=== PATIENT | male | born 1945 | race Caucasian/White ===

== ENCOUNTER → 2016-11-18 | Outpatient (CLI) | payer OTHER ==
[~2016-11-18] MED LIST: HYZUNK
[2016-11-18 13:36] LABS: ALT/SGPT 23 U/L (12-78); BLOOD UREA NITROGEN 17 mg/dl (7-18); CALCIUM 9.4 mg/dl (8.5-10.1); CARBON DIOXIDE 31 mmol/L (21-32); CHLORIDE 103 mmol/L (98-107); CHOLESTEROL 155 mg/dl (0-200); GLUCOSE 96 mg/dl (70-99); POTASSIUM 4.1 mmol/L (3.5-5.1); SODIUM 140 mmol/L (136-145); TRIGLYCERIDES 196 mg/dl (0-150); VERY LOW DENSITY LIPOPROT CALC 39 mg/dl
[2016-11-18 13:40] LABS: ALB/GLOB RATIO 1.1 (0.9-2); ALKALINE PHOSPHATASE 91 U/L (45-117); AST/SGOT 12 U/L (15-37); CHOLESTEROL/HDL RATIO 4.8; HDL CHOLESTEROL 32 mg/dl; LDL CHOLESTEROL CALCULATED 84 mg/dl
== END | disposition home or self-care (01) ==
LOC: C.LABPVFM 07:38
PROVIDERS: ATTEND Family Medicine
DX: I10 Essential (primary) hypertension (principal); E78.5 Hyperlipidemia, unspecified; E55.9 Vitamin D deficiency, unspecified

== ENCOUNTER → 2016-12-31 | Outpatient (CLI) | payer OTHER ==
[~2016-12-31] MED LIST changes: +FOLI1TAB7 PO; +HYZ/50125 PO; +METH2.5T PO; +PLQ200 PO; +PRD/25 PO
[2016-12-31 12:47] LABS: ALT/SGPT 28 U/L (12-78)
[2016-12-31 12:50] LABS: ALKALINE PHOSPHATASE 97 U/L (45-117); AST/SGOT 13 U/L (15-37)
== END | disposition home or self-care (01) ==
LOC: C.LAB1850 10:45
PROVIDERS: ATTEND Internal Medicine Rheumatology
DX: M06.041 Rheumatoid arthritis without rheumatoid factor, right hand (principal); M06.042 Rheumatoid arthritis without rheumatoid factor, left hand; Z79.899 Other long term (current) drug therapy

== ENCOUNTER → 2017-04-03 | Outpatient (CLI) | payer OTHER ==
[~2017-04-03] MED LIST changes: -FOLI1TAB7 PO; -HYZ/50125 PO; -METH2.5T PO; -PLQ200 PO; -PRD/25 PO
[2017-04-03 10:06] LABS: BASO % 0.4 %; BASO ABS # 0.02 K/uL (0-0.2); COMPLETE YES; EOS % 3.6 %; HEMATOCRIT 43.7 % (42-52); LYMPH % 23.9 %; LYMPH ABS # 1.12 K/uL (1.2-3.4); MEAN CELL VOLUME 93.4 fL (80-100); MEAN CORPUSCULAR HEMOGLOBIN 32.3 pg (25-34); MEAN CORPUSCULAR HGB CONC 34.6 g/dl (32-36); MEAN PLATELET VOLUME 10.8 fL (7.4-10.4); MONO % 8.5 %; NEUT % 63.6 %; PLATELET COUNT 139 K/uL (130-400); RED BLOOD COUNT 4.68 M/uL (4.7-6.1); WHITE BLOOD COUNT 4.69 K/uL (4.8-10.8)
[2017-04-03 10:27] LABS: ALT/SGPT 28 U/L (12-78); AST/SGOT 13 U/L (15-37); BLOOD UREA NITROGEN 16 mg/dl (7-18); BUN/CREATININE RATIO 12.7 (10-20); CARBON DIOXIDE 29 mmol/L (21-32); CHLORIDE 103 mmol/L (98-107); GLUCOSE 83 mg/dl (70-99); POTASSIUM 4.2 mmol/L (3.5-5.1); SODIUM 138 mmol/L (136-145)
[2017-04-03 10:32] LABS: ALB/GLOB RATIO 1.2 (0.9-2); ALKALINE PHOSPHATASE 96 U/L (45-117)
== END | disposition home or self-care (01) ==
LOC: C.LAB1850 09:21
PROVIDERS: ATTEND Internal Medicine Rheumatology
DX: Z12.5 Encounter for screening for malignant neoplasm of prostate (principal); M06.041 Rheumatoid arthritis without rheumatoid factor, right hand; M06.042 Rheumatoid arthritis without rheumatoid factor, left hand; Z79.899 Other long term (current) drug therapy

== ENCOUNTER → 2017-07-22 | Outpatient (CLI) | payer OTHER ==
[2017-07-22 10:04] LABS: BASO % 0.5 %; BASO ABS # 0.03 K/uL (0-0.2); COMPLETE YES; EOS % 3.5 %; HEMATOCRIT 43.2 % (42-52); IG% 0.2 %; LYMPH % 18.5 %; MEAN CELL VOLUME 92.1 fL (80-100); MEAN CORPUSCULAR HEMOGLOBIN 31.6 pg (25-34); MEAN CORPUSCULAR HGB CONC 34.3 g/dl (32-36); MONO % 8.9 %; NEUT % 68.4 %; PLATELET COUNT 164 K/uL (130-400); RED BLOOD COUNT 4.69 M/uL (4.7-6.1); WHITE BLOOD COUNT 5.96 K/uL (4.8-10.8)
[2017-07-22 10:29] LABS: ALT/SGPT 27 U/L (12-78); AST/SGOT 9 U/L (15-37); CREATININE 1.25 mg/dl (0.60-1.40)
== END | disposition home or self-care (01) ==
LOC: C.LAB1850 09:19
PROVIDERS: ATTEND Internal Medicine Rheumatology
DX: M06.041 Rheumatoid arthritis without rheumatoid factor, right hand (principal); M06.042 Rheumatoid arthritis without rheumatoid factor, left hand; Z51.81 Encounter for therapeutic drug level monitoring; Z79.899 Other long term (current) drug therapy

== ENCOUNTER → 2017-09-01 | Day surgery (SDC) | payer OTHER ==
[2017-08-17 07:48] VITALS: Ht 180.3 cm; Wt 90.0 kg
[~2017-09-01] VITALS: Ht 180.3 cm; Wt 90.0 kg
[~2017-09-01] MED LIST changes: +FOLI1TAB7 PO; +HYZ/50125 PO; -HYZUNK; +METH2.5T PO; +PLQ200 PO; +PRD/25 PO; +SODIUM CHLORIDE 0.9% 500ML 500 ML IV ONE
--- NOTE | 2017-09-01 09:45 | Endo History and Physical ---
History & Physical Date of Service: Sep 01, 2017. Chief Complaint: screening Referring Physician: Dr. Judge History of Present Illness 72 yo CM who presents for screening colonoscopy. Past Surgical History Hx Cardiac Surgery: No Hx Internal Defibrillator: No Hx Pacemaker: No Hx Abdominal Surgery: Yes (INGUINAL HERNIA) Hx of Implantable Prosthesis: No Hx Post-Op Nausea and Vomiting: No Hx Cancer Surgery: No Hx Thoracic Surgery: No Hx Orthopedic: No Hx Urinary Tract Surgery: No Family History None Social History Hx Substance Use: No Hx Alcohol Use: No Allergies Coded Allergies: No Known Allergies (Verified , 09/01/17) Current Medications Reported Home Medications Medications Dose Route/Sig Max Daily Dose Days Date Category Folvite (Folic Acid) 1 Mg Tab 1 Mg PO QAM 08/17/17 Reported Prednisone 2.5 Mg Tab 2.5 Mg PO 2XWK 08/17/17 Reported Methotrexate (Methotrexate Sodium) 2.5 Mg Tab 4 Tab PO WK 08/17/17 Reported Hydroxychloroquine Sulfat (Hydroxychloroquine Sulfate) 200 Mg Tab 1 Tab PO QAM 08/17/17 Reported Hyzaar 12.5MG/50MG (HCTZ/Losartan Potassium) Tab 1 Tab PO QAM 08/17/17 Reported Vital Signs Weight (Kilograms): 90 Height (Feet): 5 Height (Inches): 11 Date Time Temp Pulse Resp B/P (MAP) Pulse Ox O2 Delivery O2 Flow Rate FiO2 09/01/17 09:26 36.6 82 18 145/65 (91) 97 Room Air Physical Exam General Appearance: WD/WN, no apparent distress Respiratory/Chest: Auscultation: breath sounds normal Cardiovascular: Heart Auscultation: RRR Abdomen: Bowel Sounds: normal Inspection & Palpation: soft, non-distended, no tenderness, guarding & rebound Assessment and Plan Assessment: 72 yo CM who presents for screening colonoscopy. Plan: Proceed with colonoscopy.
--- NOTE | 2017-09-01 11:01 | Discharge Instructions ---
Endoscopy Patient Instructions Date / Procedure(s) Performed Sep 01, 2017. Colonoscopy Allergy Information Coded Allergies: No Known Allergies (Verified , 09/01/17) Discharge Date / Findings Sep 01, 2017. Diverticulosis Internal hemorrhoids Medication Instructions Stopped Medication(s): All meds stopped 08-31-17. OK to resume all medications today as prescribed Reported Home Medications Medications Dose Route/Sig Max Daily Dose Days Date Category Folvite (Folic Acid) 1 Mg Tab 1 Mg PO QAM 08/17/17 Reported Prednisone 2.5 Mg Tab 2.5 Mg PO 2XWK 08/17/17 Reported Methotrexate (Methotrexate Sodium) 2.5 Mg Tab 4 Tab PO WK 08/17/17 Reported Hydroxychloroquine Sulfat (Hydroxychloroquine Sulfate) 200 Mg Tab 1 Tab PO QAM 08/17/17 Reported Hyzaar 12.5MG/50MG (HCTZ/Losartan Potassium) Tab 1 Tab PO QAM 08/17/17 Reported Provider Instructions Activity Restrictions - No exercising or heavy lifting for 24 hours. - Do not drink alcohol the day of the procedure. - Do not drive a car or operate machinery until the day after the procedure. - Do not make any important decisions or sign important papers in 24 hours after the procedure. Following Day: - Return to full activity which may include returning to work/school. Diet Start your diet with liquids and light foods (jello, soup, juice, toast). Then eat your usual diet if not nauseated. Treatment For Common After Affects For mild abdominal pain, bloating, or excessive gas: - Rest - Eat lightly - Lie on right side Follow-Up Information Follow-up with Dr. Judge as scheduled Anesthesia Information What You Should Know You have had a procedure that required some medicine to reduce anxiety and discomfort. This treatment is called moderate sedation. After receiving the treatment, you may be sleepy, but you will be able to breathe on your own. The effects of the treatment may last for several hours. Follow these instructions along with Activity/Diet recommendations noted above: * Do NOT do anything where dizziness or clumsiness would be dangerous. * Rest quietly at home today, then you can be up and about tomorrow. * Have a responsible person stay with you the rest of today. * You may have had an I.V. today. If so, you may take the dressing off later today. Recommendations Call your doctor if: * Trouble breathing * Continuous vomiting for more than 24 hours * Temperature above 101 degrees * Severe abdominal pain or bloating * Pain not relieved by pain medicine ordered * There is increased drainage or redness from any incision * A large amount of rectal bleeding greater than 2-3 tablespoons. (If you had a polyp/s removed or have hemorrhoids, a small amount of blood - from the rectum is to be expected.) * You have any unanswered questions or concerns. IN THE EVENT OF A SERIOUS EMERGENCY, GO TO THE NEAREST EMERGENCY ROOM Your discharge instructions were prepared by provider Mau Alvarez. Patient Instructions Signature Page Leif Bryant Patient (or Guardian) Signature/Date: I have read and understand the instructions given to me by my caregivers. Caregiver/RN/Doctor Signature/Date: The above-named patient and/or guardian has received patient instructions on this date. + Original Patient Signature Page (only) stays with chart. Please make copy for patient.
--- NOTE | 2017-09-01 11:04 | GI REPORT ---
Procedure Date: 09/01/2017 10:09 AM Procedure: Colonoscopy Indications: Screening for colorectal malignant neoplasm Medicines: Monitored Anesthesia Care Complications: No immediate complications. Estimated Blood Loss: Estimated blood loss: none. Procedure: Pre-Anesthesia Assessment: - Prior to the procedure, a History and Physical was performed, and patient medications and allergies were reviewed. The patient's tolerance of previous anesthesia was also reviewed. The risks and benefits of the procedure and the sedation options and risks were discussed with the patient. All questions were answered, and informed consent was obtained. Prior Anticoagulants: The patient has taken no previous anticoagulant or antiplatelet agents. ASA Grade Assessment: II - A patient with mild systemic disease. After reviewing the risks and benefits, the patient was deemed in satisfactory condition to undergo the procedure. After I obtained informed consent, the scope was passed under direct vision. Throughout the procedure, the patient's blood pressure, pulse, and oxygen saturations were monitored continuously. The scope was introduced through the anus and advanced to the terminal ileum. The colonoscopy was performed without difficulty. The patient tolerated the procedure well. The quality of the bowel preparation was good. The terminal ileum, ileocecal valve, appendiceal orifice, and rectum were photographed. Findings: The perianal and digital rectal examinations were normal. Multiple small-mouthed diverticula were found in the sigmoid colon. Non-bleeding internal hemorrhoids were found during retroflexion. The hemorrhoids were small. Impression: - Diverticulosis in the sigmoid colon. - Non-bleeding internal hemorrhoids. - No specimens collected. Recommendation: - Resume previous diet. - Continue present medications. - No repeat colonoscopy due to age and the absence of advanced adenomas. - Return to primary care physician as previously scheduled. Mau Alvarez, 09/01/2017 11:03:23 AM This report has been signed electronically. Note Initiated On: 09/01/2017 10:09 AM I attest to the content of the Intraoperative Record and orders documented therein, exceptions below
[2017-09-01 11:42] VITALS: BP 129/82; PULSE 78; O2SAT 98
--- NOTE | 2017-09-01 12:38 | Anesthesiology Progress Note ---
Anesthesia Post Op Note Date & Time Sep 01, 2017 at 12:38 Vital Signs Pain Intensity: 0 Vital Signs Past 12 Hours Date Time Temp Pulse Resp B/P (MAP) Pulse Ox O2 Delivery O2 Flow Rate FiO2 09/01/17 11:42 78 18 129/82 (98) 98 Room Air 09/01/17 11:30 73 18 128/82 (97) 98 Room Air 09/01/17 11:15 73 14 129/70 (89) 96 Room Air 09/01/17 10:59 77 14 102/66 (78) 97 Room Air 09/01/17 09:26 36.6 82 18 145/65 (91) 97 Room Air Notes Mental Status: alert / awake / arousable, participated in evaluation Pt Amnestic to Procedure: Yes Nausea / Vomiting: adequately controlled Pain: adequately controlled Airway Patency, RR, SpO2: stable & adequate BP & HR: stable & adequate Hydration State: stable & adequate Anesthetic Complications: no major complications apparent
== END | disposition home or self-care (01) ==
LOC: C.GI 08:45
PROVIDERS: ATTEND Internal Medicine
DX: Z12.11 Encounter for screening for malignant neoplasm of colon (principal); K57.30 Diverticulosis of large intestine without perforation or abscess without bleeding; K64.8 Other hemorrhoids

== ENCOUNTER → 2017-10-27 | Outpatient (CLI) | payer OTHER ==
[~2017-10-27] MED LIST changes: -FOLI1TAB7 PO; +FOLI1TAB8 PO; -SODIUM CHLORIDE 0.9% 500ML 500 ML IV ONE
[2017-10-27 12:03] LABS: BASO % 0.4 %; BASO ABS # 0.03 K/uL (0-0.2); EOS % 3.6 %; EOS ABS # 0.24 K/uL (0-0.5); HEMATOCRIT 42.2 % (42-52); HEMOGLOBIN 13.8 g/dL (14.0-18.0); IG# 0.01 K/uL (0.00-0.02); LYMPH % 13.8 %; LYMPH ABS # 0.93 K/uL (1.2-3.4); MEAN CELL VOLUME 94.8 fL (80-100); MEAN CORPUSCULAR HGB CONC 32.7 g/dl (32-36); MEAN PLATELET VOLUME 10.6 fL (7.4-10.4); MONO % 8.3 %; MONO ABS # 0.56 K/uL (0.11-0.59); NEUT % 73.8 %; NEUT ABS # 4.98 K/uL (1.4-6.5); PLATELET COUNT 158 K/uL (130-400); RED CELL DISTRIBUTION WIDTH CV 13.6 % (11.5-14.5); RED CELL DISTRIBUTION WIDTH SD 47.2 fL (36.4-46.3); WHITE BLOOD COUNT 6.75 K/uL (4.8-10.8)
[2017-10-27 12:30] LABS: ALBUMIN 3.7 gm/dl (3.4-5.0); ALT/SGPT 24 U/L (12-78); AST/SGOT 13 U/L (15-37); CREATININE 1.21 mg/dl (0.60-1.40)
[2017-10-27 12:31] LABS: ALKALINE PHOSPHATASE 93 U/L (45-117); TOTAL PROTEIN 7.4 gm/dl (6.4-8.2)
== END | disposition home or self-care (01) ==
LOC: C.LAB1850 09:50
PROVIDERS: ATTEND Internal Medicine Rheumatology
DX: E55.9 Vitamin D deficiency, unspecified (principal); M06.041 Rheumatoid arthritis without rheumatoid factor, right hand; M06.042 Rheumatoid arthritis without rheumatoid factor, left hand; Z79.899 Other long term (current) drug therapy

== ENCOUNTER → 2017-12-24 | Outpatient (CLI) | payer OTHER | END | disposition home or self-care (01) | LOC: C.LABPVFM 08:32 | PROVIDERS: ATTEND Family Medicine | DX: R22.1 Localized swelling, mass and lump, neck (principal) ==

== ENCOUNTER → 2017-12-29 | Outpatient (CLI) | payer OTHER ==
--- NOTE | 2017-12-29 12:32 | DIAGNOSTIC IMAGING REPORT ---
SOFT TISS HEAD/NECK-THYROID CLINICAL HISTORY: 72 years-old Male presenting with R22.1 Neck [id number]. TECHNIQUE: Real-time grayscale and color Doppler ultrasound imaging of the thyroid and base of the neck was performed. COMPARISON: None. FINDINGS: Right lobe: Heterogeneous echotexture and enlarged. The right lobe of the thyroid measures 3.4 x 9.1 x 4.4 cm. No parenchymal hyperemia. Nodules enumerated below: 1. Isoechoic well-defined dominant lower pole nodule measuring 4.6 x 3.0 x 5.1 cm (low suspicion pattern). Left lobe: Heterogeneous echotexture and enlarged. The left lobe of the thyroid measures 3.5 x 10.0 x 4.7 cm. No parenchymal hyperemia. No discrete nodule. Isthmus: The isthmus measures 6 mm in thickness. No parenchymal hyperemia. No nodules. IMPRESSION: Enlarged thyroid compatible with goiter. Dominant low suspicion pattern nodule in the lower pole of the right thyroid lobe. Fine-needle aspiration of this nodule is recommended by [place] [employer] criteria based on size and appearance if this has not previously been performed. Electronically signed by: Ori Ding M.D. 12/29/2017 12:30 PM Dictated Date/Time: 12/29/2017 12:26 PM
== END | disposition home or self-care (01) ==
LOC: C.ULTR 11:42
PROVIDERS: ATTEND Family Medicine
DX: E04.9 Nontoxic goiter, unspecified (principal)

== ENCOUNTER → 2018-01-07 | Outpatient (CLI) | payer OTHER ==
--- NOTE | 2018-01-07 11:37 | DIAGNOSTIC IMAGING REPORT ---
SOFT TISS HEAD/NECK-THYROID CLINICAL HISTORY: 72 years-old Male with THYROID NODULE. Multinodular goiter. 5.1 cm nodule of the inferior pole right thyroid reported on comparison study. COMPARISON: Thyroid ultrasound 12/29/2017 TECHNIQUE: Multiple real time sonographic images of the thyroid were obtained accessing castro scale appearance and color doppler flow. FINDINGS/IMPRESSION: Enlarged and heterogeneous thyroid without dominant nodule identified. No biopsy was conducted secondary to no dominant thyroid nodule present. The above report was generated using voice recognition software. It may contain grammatical, syntax or spelling errors. Electronically signed by: Fito Canas M.D. 01/07/2018 11:35 AM Dictated Date/Time: 01/07/2018 10:52 AM
== END | disposition home or self-care (01) ==
LOC: C.ULTR 09:27
PROVIDERS: ATTEND Family Medicine
DX: E04.1 Nontoxic single thyroid nodule (principal)

== ENCOUNTER 2019-03-01 09:44 | Inpatient (IN) ==
--- NOTE | 2019-03-01 09:52 | Emergency Department Note ---
Entered by Amy Grayson acting as a scribe for Jeffrey Adams DO History of Present Illness General Chief complaint: Arm Pain Stated complaint: PAIN LEFT ARM, AND HIP Home Medications Home Medications Medication Instructions Recorded Confirmed Type FOLIC ACID (FOLVITE) 1 mg PO QAM #0 tab 08/17/17 History Hctz/Losartan (Hyzaar 12.5MG/50MG) 1 tab PO QAM #0 tab 08/17/17 History Hydroxychloroquine Sulfate 1 tab PO QAM #0 08/17/17 History (Hydroxychloroquine Sulfat) METHOTREXATE SODIUM (METHOTREXATE) 4 tab PO WK #0 tab 08/17/17 History Prednisone 2.5 mg PO 2XWK #0 tab 08/17/17 History Allergies Allergy/AdvReac Type Severity Reaction Status Date / Time No Known Allergies Allergy Verified 09/01/17 09:18 Course 0956: The patient was evaluated in room . A history and physical were performed. Medical Decision Making Medical Records Attestation: I reviewed the patient's medical records. Home Medications Current Medication List: was personally reviewed by me Discharge Plan Visit Data Chief Complaint: Arm Pain Stated Complaint: PAIN LEFT ARM, AND HIP ED Provider: SAURAVED Prescriptions Prescriptions: No Action FOLIC ACID (FOLVITE) 1 MG tablet 1 mg PO QAM Qty: 0 RF: 0 Hctz/Losartan (Hyzaar 12.5MG/50MG) tablet 1 tab PO QAM Qty: 0 RF: 0 Hydroxychloroquine Sulfate (Hydroxychloroquine Sulfat) 200 MG tablet 1 tab PO QAM Qty: 0 RF: 0 METHOTREXATE SODIUM (METHOTREXATE) 2.5 MG tablet 4 tab PO WK Qty: 0 RF: 1 Prednisone 2.5 MG tablet 2.5 mg PO 2XWK Qty: 0 RF: 0
[2019-03-01] MEDS ORDERED: OXYCODONE HCL IR 5 MG TAB (IMMEDIATE RELEASE) PO STA (10:10)
[2019-03-01 10:41] LABS: Basophils # (auto) 0.03 K/uL (0-0.2); Basophils % (auto) 0.3 %; Eosinophils % (auto) 2.2 %; Immature Granulocytes # (auto) 0.02 K/uL (0.00-0.02); Immature Granulocytes % (auto) 0.2 %; Lymphocytes # (auto) 0.94 K/uL (1.2-3.4); Lymphocytes % (auto) 10.5 %; Mean Corpuscular Hgb Conc 34.1 g/dL (32-36); Mean Corpuscular Volume 87.6 fL (80-100); Mean Platelet Volume 10.2 fL (7.4-10.4); Monocytes # (auto) 0.66 K/uL (0.11-0.59); Monocytes % (auto) 7.4 %; Neutrophils % (auto) 79.4 %; Platelet Count 147 K/uL (130-400); RDW Coefficient of Variation 12.8 % (11.5-14.5); RDW Standard Deviation 40.9 fL (36.4-46.3); Red Blood Count 4.68 M/uL (4.7-6.1); White Blood Count 8.95 K/uL (4.8-10.8)
--- NOTE | 2019-03-01 10:48 | XRay Report ---
XR hip LT min 2V HISTORY: 73 years-old Male pain acute left hip pain without reported trauma COMPARISON: None available TECHNIQUE: 2 views of the left hip FINDINGS: Mild to moderate left hip osteoarthritis. No acute fracture, dislocation or avascular necrosis. Degen erative changes of the pelvis and imaged lumbar spine. Calcifications of the pelvis are suggestive of phleboliths. IMPRESSION: No acute fracture or dislocation. The above report was generated using voice recognition software. It may contain grammatical, syntax o r spelling errors. Electronically signed by: Fito Canas M.D. 03/01/2019 10:47 AM
[2019-03-01 10:52] LABS: INR 1.1 (0.9-1.1); Partial Thromboplastin Time 28.1 Seconds (21.0-31.0)
--- NOTE | 2019-03-01 10:52 | XRay Report ---
XR chest 1V portable CLINICAL HISTORY: 73 years-old Male presenting with Chest Pain. TECHNIQUE: Portable upright AP view of the chest was obtained. COMPARISON: None. FINDINGS: Atherosclerosis of the aortic arch. Cardiac silhouette normal in size. Mildly low lung volumes with h ypoventilatory changes. Minimal basilar opacities. No pleural effusion or pneumothorax. Degenerative changes of the thoracic spine. Upper abdomen normal. IMPRESSION: 1. Minimal basilar opacities likely atelectasis or scarring. No convincing evidence of acute cardiop ulmonary disease. Electronically signed by: Ori Ding M.D. 03/01/2019 10:51 AM
--- NOTE | 2019-03-01 10:55 | XRay Report ---
XR shoulder LT min 2V routine CLINICAL HISTORY: 73 years-old Male presenting with chest and left shoulder pain, atraumatic. TECHNIQUE: External rotation, internal rotation, Grashey views of the left shoulder were obtained. COMPARISON: None. FINDINGS: Acromioclavicular and glenohumeral joints congruent. No acute fracture or malalignment. No advanced d egenerative change. Opacity at the left lung base effusion may be present. Overall low lung volume on the left. IMPRESSION: 1. No acute osseous injury. 2. Left basilar atelectasis versus trace left pleural effusion in the setting of low lung volume on the left.. Electronically signed by: Ori Ding M.D. 03/01/2019 10:53 AM
[2019-03-01 11:00] LABS: Alanine Aminotransferase 25 U/L (12-78); Albumin Level 3.6 gm/dl (3.4-5.0); Aspartate Aminotransferase 16 U/L (15-37); BUN Creatinine Ratio 13.5 (10-20); Blood Urea Nitrogen 18 mg/dl (7-18); C Reactive Protein 2.82 mg/dl (0-0.29); Calcium 9.5 mg/dl (8.5-10.1); Carbon Dioxide 27 mmol/L (21-32); Chloride 104 mmol/L (98-107); Creatinine Clr Calc Pharmacy 55.4 ml/min; Est GFR (African American) 60.5; Est GFR (Non-African American) 52.2; Glucose 121 mg/dl (70-99); Potassium 4.3 mmol/L (3.5-5.1); Sodium 137 mmol/L (136-145)
[2019-03-01 11:04] LABS: Albumin Globulin Ratio 0.9 (0.9-2); Alkaline Phosphatase 97 U/L (45-117); Bilirubin,Total 0.6 mg/dl (0.2-1); Globulin 4.2 gm/dl (2.5-4.0); Total Protein 7.8 gm/dl (6.4-8.2); Troponin I < 0.015 ng/ml (0-0.045)
[2019-03-01 12:05] LABS: Lyme Ab IgG w/WB Rflx Negative (Negative); Lyme Ab IgM w/WB Rflx Negative (Negative)
[2019-03-01] MEDS ORDERED: SODIUM CHLORIDE 0.9% 1000ML 1,000 ML IV ONE (12:14)
[2019-03-01] MEDS ORDERED: OPTIRAY 320 125ml IV PRN (12:38)
--- NOTE | 2019-03-01 13:10 | CT Scan Report ---
CT ANGIOGRAM OF THE CHEST; CT SCAN OF THE ABDOMEN AND PELVIS WITH IV CONTRAST CLINICAL HISTORY: Atypical chest pain. Generalized abdominal pain. COMPARISON STUDY: Chest x-ray dated 03/01/2019. TECHNIQUE: Following the IV administration of 119 of Optiray 320, CT angiogram of the chest is perfor med from the upper abdomen to the thoracic inlet utilizing the pulmonary embolus protocol. Images are reviewed in the axial, sagittal, coronal planes. 3-D MIPS images are created and assessed. Subsequen tly, CT scan of the abdomen and pelvis was performed from the lung bases to the proximal femora. Imag es are reviewed in the axial, sagittal, and coronal planes. IV contrast was administered without comp lication. A dose lowering technique was utilized adhering to the principles of ALARA. The examination is significantly degraded by motion artifact. CT DOSE: 1472.12 mGy.cm FINDINGS: CHEST: Thyroid: The thyroid gland is markedly enlarged and heterogeneous, and extends into the superior medi astinum. The appearance is consistent with a multinodular goiter. Small calcifications are noted in t he left lobe. Thoracic aorta: The thoracic aorta is normal in caliber and demonstrates bovine variant arch anatomy. No dissection is seen. Pulmonary vasculature: The pulmonary trunk is on the dilated measuring 3.4 cm in diameter. This sugge sts pulmonary artery hypertension. There are no filling defects identified in the main, lobar, or pro ximal segmental pulmonary arteries to indicate pulmonary embolus. Evaluation of the peripheral branch es is significantly degraded by motion artifact. Heart: The heart is normal enlarged and without pericardial effusion. There are coronary artery calci fications. Lungs and pleural spaces: Evaluation of lung parenchyma is degraded by motion artifact. There is biba silar scarring/atelectasis. No airspace consolidation or pleural effusion is identified. Accessory az ygous fissure is incidentally noted. The trachea and central airways are clear. Mediastinum: There are numerous mildly enlarged mediastinal lymph nodes. Peritracheal nodes measure u p to 12 mm in short axis. Prevascular nodes measure up to 10 mm in short axis. Eliza: There is hilar adenopathy. Hilar nodes measure up to 13 mm in short axis. Axillae: There are mildly enlarged right axillary lymph nodes which measure up to 12 mm in short axis no left axillary adenopathy is seen. Bony thorax: The skeletal structures are osteopenic. There is a large hemangioma in the body of T10. No lytic or blastic lesions are identified. ABDOMEN AND PELVIS: Liver: The contrast-enhanced liver is normal in size, contour, and attenuation. There is no intrahepa tic or ductal dilatation. The hepatic veins and portal veins are patent. A 2.1 cm cyst is noted in th e left lobe. Gallbladder: Unremarkable. Spleen: Normal in size and attenuation. Pancreas: Unremarkable. Adrenal glands: Unremarkable. Kidneys: The contrast enhanced kidneys demonstrate cortical atrophy. There is moderate to severe righ t hydronephrosis. The right ureter is normal in caliber and no obstructing lesion is identified. 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 There is no left-sided hydronephrosis. The kidneys enhance symmetrically. There are least 2 nonobstructing right renal calculi which measure up to 11 mm. A 12 cm exophytic cyst arises posteriorly from the right kidney. Additional smaller cysts are seen bilater ally. There is a 1.4 cm lesion in the lower pole of left kidney seen on image #259 which does not obey t criteria for a simple cyst. Abdominal vasculature: There is moderate atherosclerotic calcification and mild ectasia of the abdomi nal aorta. Bowel: There is advanced colonic diverticulosis without CT evidence of acute diverticulitis. Colonic fecal retention is observed. No bowel obstruction is seen. The appendix is well-visualized and linh l. Peritoneum: There is no intraperitoneal free air or abdominal ascites. There is a small fat-containin g umbilical hernia. Lymphadenopathy: A mildly enlarged right cardiophrenic node measures 9 mm in short axis. A prominent portacaval node measures 11 mm short axis. There is no mesenteric, retroperitoneal, pelvic sidewall, or inguinal lymphadenopathy. Pelvic viscera: The prostate gland is enlarged and heterogeneous noting median lobe hypertrophy. The bladder is distended. The bladder wall is mildly thickened and trabeculated indicating chronic calibe r obstruction. There is a small fat-containing right inguinal hernia as well as a fat-containing righ t suprainguinal hernia seen on image #405. Skeletal structures: The skeletal structures are osteopenic. There is mild lumbosacral spondylosis. D egenerative change is also noted in the hips and sacroiliac joints. No lytic or blastic lesions are s een. IMPRESSION: 1. There is no evidence of pulmonary embolus in the main, lobar, or proximal segmental pulmonary payton favian. Evaluation of the peripheral branches is degraded by motion artifact. 2. Cardiomegaly. 3. There is no airspace consolidation or pleural effusion. 4. There is moderate to severe right hydronephrosis. The right ureter is normal in caliber, and no ob structing stone/lesion is identified. 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 The right kidney enhances homogeneously and there is no surrounding inflammation. Nonemergent follow-up with urology is recommended. 5. Nonobstructing right renal calculi. 6. There is a 1.4 cm lesion identified in the lower pole of left kidney that does not meet criteria f or a simple cyst. Although this could represent a complex cyst, follow-up with a nonemergent renal pr otocol MRI is recommended to exclude underlying neoplasm. 7. Advanced colonic diverticulosis without CT evidence of acute diverticulitis. 8. Prostatomegaly with evidence of chronic bladder outlet obstruction. 9. There is a small fat-containing right inguinal hernia as well as a fat-containing right supraingui nal hernia. 10. The thyroid gland is markedly enlarged and heterogeneous consistent with multinodular goiter. 11. There are enlarged and pathologically indeterminant mediastinal, hilar, and right axillary lymph nodes. 12. Additional findings as above. Electronically signed by: Nelson Forrester M.D. 03/01/2019 1:09 PM
[2019-03-01 14:16] LABS: Appearance Urine Clear (Clear); Bacteria Urine Automated Negative (Negative); Bilirubin Urine Negative (Negative); Blood Urine Negative (Negative); Color Urine Yellow; Glucose Urine UA Negative (Negative); Ketones Urine Negative (Negative); Leukocyte Esterase Urine Negative (Negative); Nitrite Urine Negative (Negative); RBC Urine Automated 0-4 /hpf (0-4); Specific Gravity Urine 1.028 (1.000-1.030); Urobilinogen Urine Negative (Negative); pH Urine 7.5 (4.5-7.5)
[2019-03-01 14:18] LABS: Protein Urine Negative (Negative)
--- NOTE | 2019-03-01 14:33 | History & Physical Report ---
Date of Service March 01, 2019 Assessment & Plan (1) Hypotension: Transient hypotension accompanied by chills, Reiger's, malaise. Rule out sepsis. Blood and urine cultures obtained. Await lactic acid level. Continue IV fluids. Start empiric intravenous Unasyn Present on Admission?: Yes (2) Hydronephrosis: Right hydronephrosis noted suggesting right UPJ obstruction. Consult urology. A left renal mass is also noted which needs to have follow-up. Serial labs Present on Admission?: Yes (3) Left shoulder pain: Probable left shoulder and left hip strain/sprain from overuse yesterday while painting on a ladder. Will treat with several doses of Solu-Medrol and gauge his response. If the symptoms persist, consider orthopedic consultation Present on Admission?: Yes (4) Hypertension: Hold losartan and hydrochlorothiazide for now (5) DVT prophylaxis: Lovenox subcu History of Present Illness Chief Complaint: Diaphoresis, Reiger's, malaise. Left hip and left shoulder pain after painting on a ladder yesterday Primary Care Provider: Vamshi Judge MD 73-year-old white male who I suspect has 2 separate problems. He developed lef t shoulder discomfort and limited range of motion and left hip pain after he was painting on a ladder yesterday. I suspect he may have simply sprained the joints and/or strained musculature in the area. This will be treated conservatively with several doses of Solu-Medrol then reassessed. The more pressing issue is that he had Reiger's pallor and weakness this morning and came to the ED for evaluation. He denies chest pain or shortness of breath. No melena or hematochezia. He had a transient hypotensive episode in the ED. Chest CTA is negative for PE. Abdominal CT scan reveals moderately severe right hydronephrosis suggesting the possibility of right UPJ obstruction. There is a 1.4 cm left renal mass that also needs to be evaluated. There is some lymphadenopathy in the region of the mediastinum, hilum, right axilla. EKG reveals normal sinus rhythm with no acute changes. He does have a conduction delay. He will need to be treated as possible sepsis. Blood and urine cultures requested and he has been started on Unasyn. Lactic acid is pending. Urology will be consulted. Admit to telemetry. Continue IV fluids. Hold antihypertensive medications for now. Allergies Allergy/AdvReac Type Severity Reaction Status Date / Time No Known Allergies Allergy Verified 03/01/19 10:55 Home Medications Home Medications Medication Instructions Recorded Confirmed Type losartan-hydrochlorothiazide 1 tab PO DAILY 03/01/19 03/01/19 History Past Med/Surg History Medical History HTN (hypertension) (Chronic) Social History Preferred Language: Trinidadian Feels Safe at Home: Yes Smoking Status: Never smoker Review of Systems Review of Systems: Constitutional-fever, chills, malaise ENT-no blurred vision, no double vision, no epistaxis, no sore throat Respiratory-no cough, no wheezing, no shortness of breath Cardiac-no palpitations, no chest pain, no syncope GI-no nausea, vomiting, diarrhea, melena, hematochezia -no urinary retention, no urinary incontinence, no dysuria, no hematuria Musculoskeletal-left shoulder and left hip discomfort noticed last evening and today Skin-no bruising, no rashes, no pruritus Neuro-no isolated weakness, no paresthesia, no weakness Psych-no depression, no anxiety Physical Exam Physical Exam: General-alert and oriented x3, no fevers, no chills HEENT-head atraumatic and normocephalic, TMs intact bilaterally, pupils equal and reactive to light, extraocular muscles intact Neck-no lymphadenopathy or thyromegaly, trachea midline Chest-clear to auscultation percussion. No rales wheezing or rhonchi Cardiac-regular rate and rhythm, normal S1 and S2, no murmurs Abdomen-normal bowel sounds, nontender, no hepatosplenomegaly Extremities-no cyanosis, clubbing, or edema. He is tender to touch over the entire left shoulder area with limited range of motion and aggravation of pain with abduction of the arm. No erythema or deformity. He has some tenderness about the left hip area. No peripheral edema Neuro-cranial nerves II through XII intact, motor and sensory function within normal limits, strength symmetrical 5/5, no focal deficits Psych-normal affect, normal mood Results & Data Vital Signs (Past 12 Hours) Vital Signs Temp Pulse Pulse Resp BP BP Pulse Ox 03/01/19 13:20 90 20 78 L 03/01/19 13:10 82 18 98 03/01/19 13:06 81 19 139/73 98 03/01/19 13:05 84 12 03/01/19 12:20 73 22 131/73 100 03/01/19 12:15 69 15 108/58 L 98 03/01/19 12:11 59 L 16 94 03/01/19 12:09 63 18 61/44 L 95 03/01/19 12:01 76 17 115/63 97 03/01/19 12:00 80 19 96 03/01/19 11:50 81 14 97 03/01/19 11:40 83 15 96 03/01/19 11:31 85 22 138/86 93 03/01/19 11:30 22 03/01/19 11:20 18 03/01/19 11:10 18 03/01/19 11:00 18 03/01/19 10:50 21 03/01/19 10:40 17 03/01/19 10:32 97 H 20 138/83 95 03/01/19 10:30 98 H 26 H 91 03/01/19 10:24 86 20 96 03/01/19 10:22 91 H 14 139/83 96 03/01/19 10:19 95 03/01/19 09:57 36.6 C 95 H 18 151/88 H 98 Laboratory Results 03/01/19 10:16 03/01/19 10:16 (1) Hypotension Hypotension type: unspecified hypotension type Qualified Code(s): I95.9 - Hypotension, unspecified (2) Hydronephrosis Hydronephrosis type: unspecified Qualified Code(s): N13.30 - Unspecified hydronephrosis (3) Left shoulder pain Chronicity: acute Qualified Code(s): M25.512 - Pain in left shoulder
--- NOTE | 2019-03-01 15:05 | Emergency Department Note ---
Entered by Amy Grayson acting as a scribe for Jeffrey Adams DO History of Present Illness General Chief complaint: Illness Stated complaint: PAIN LEFT ARM, AND HIP Time Seen by Provider: 03/01/19 10:16 Source: patient History of Present Illness Provider complaint: left-sided pain Onset (ago): day(s) (yesterday) Location: upper extremity, lower extremity (hip) and left Maximum Pain Intensity: 9 Quality: + other (pain) Associated symptoms: + denies other symptoms (abdominal pain, swelling to his legs, hip, arm); no chest pain and no rash Treatments prior to arrival: other (Ibuprofen) The patient is a 73 year old male who presents to the Emergency Department with complaints of left-sided pain since yesterday.The patient states that he was working yesterday and had a pain in his left hip. He also reports that he began to get pain in his left arm and shoulder. The patient states that he was pain ting and was holding a gallon of paint. He states that his pain lasted through the night and states that he was unable to sleep secondary to the pain. He states that he got "sick to his stomach" from the pain. The patient states that he is currently unable to left his left arm. He denies having abdominal or chest pain. The patient denies noticing swelling in his legs, arm, or hip. He states that he took Ibuprofen for his pain. He states that he takes medication for hypertension and states that he did take it this morning. He reports a history of a hernia repair but no other surgeries. The patient denies a history of tick bites or a history of Lyme Disease. He denies noticing any rashes. The patient denies a history of a joint infection. Home Medications Home Medications Medication Instructions Recorded Confirmed Type losartan-hydrochlorothiazide 1 tab PO DAILY 03/01/19 03/01/19 History Allergies Allergy/AdvReac Type Severity Reaction Status Date / Time No Known Allergies Allergy Verified 03/01/19 10:55 Past Med/Surg History Medical History DVT prophylaxis Hypertension (Chronic) Hypotension (Acute) Left shoulder pain (Acute) Hydronephrosis (Acute) HTN (hypertension) (Chronic) Social History Preferred Language: Malay Communication Ability: Effective Staffing Analyst Required: No Beliefs That Will Affect Care: None Current Living Situation: Spouse Other Information That Helps Us Care for You: No Feels Safe at Home: Yes Safety Concerns: Feels Safe At This Time Smoking Status: Unknown if ever smoked Hx Alcohol Use: No Hx Substance Use: No Review of Systems See HPI for pertinent positives & negatives. and A total of 10 systems reviewed and were otherwise negative Physical Exam Vital Signs Vital Signs - 24 hr 03/01/19 09:57 03/01/19 10:19 03/01/19 10:22 Temperature 36.6 C Temperature Source Oral Sepsis Recent Fever Within 48 Hours No Sepsis New/Unexplained Change in Mental Status No Sepsis Action Taken by Nursing No Action Required Pulse Rate 95 H 91 H Pulse Rate [Apical] Pulse Rate from SpO2 Sensor 90 Respiratory Rate 18 14 Respiratory Effort / Characteristics Non-Labored Spontaneous Respiratory Depth Normal Respiratory Pattern Regular Blood Pressure 151/88 H 139/83 Blood Pressure [Right Arm] Blood Pressure Mean 109 101 Blood Pressure Mean [Right Arm] Blood Pressure Position Sitting Pulse Oximetry 98 95 96 Oxygen Delivery Method Room Air Room Air 03/01/19 10:24 03/01/19 10:30 03/01/19 10:32 Temperature Temperature Source Sepsis Recent Fever Within 48 Hours Sepsis New/Unexplained Change in Mental Status Sepsis Action Taken by Nursing Pulse Rate 86 98 H Pulse Rate [Apical] 97 H Pulse Rate from SpO2 Sensor 94 H 97 H Respiratory Rate 20 26 H 20 Respiratory Effort / Characteristics Respiratory Depth Normal Respiratory Pattern Blood Pressure Blood Pressure [Right Arm] 138/83 Blood Pressure Mean Blood Pressure Mean [Right Arm] 101 Blood Pressure Position Pulse Oximetry 96 91 95 Oxygen Delivery Method Room Air 03/01/19 10:40 03/01/19 10:50 03/01/19 11:00 Temperature Temperature Source Sepsis Recent Fever Within 48 Hours Sepsis New/Unexplained Change in Mental Status Sepsis Action Taken by Nursing Pulse Rate Pulse Rate [Apical] Pulse Rate from SpO2 Sensor Respiratory Rate 17 21 18 Respiratory Effort / Characteristics Respiratory Depth Respiratory Pattern Blood Pressure Blood Pressure [Right Arm] Blood Pressure Mean Blood Pressure Mean [Right Arm] Blood Pressure Position Pulse Oximetry Oxygen Delivery Method 03/01/19 11:10 03/01/19 11:20 03/01/19 11:30 Temperature Temperature Source Sepsis Recent Fever Within 48 Hours Sepsis New/Unexplained Change in Mental Status Sepsis Action Taken by Nursing Pulse Rate Pulse Rate [Apical] Pulse Rate from SpO2 Sensor Respiratory Rate 18 18 22 Respiratory Effort / Characteristics Respiratory Depth Respiratory Pattern Blood Pressure Blood Pressure [Right Arm] Blood Pressure Mean Blood Pressure Mean [Right Arm] Blood Pressure Position Pulse Oximetry Oxygen Delivery Method 03/01/19 11:31 03/01/19 11:40 03/01/19 11:50 Temperature Temperature Source Sepsis Recent Fever Within 48 Hours Sepsis New/Unexplained Change in Mental Status Sepsis Action Taken by Nursing Pulse Rate 85 83 81 Pulse Rate [Apical] Pulse Rate from SpO2 Sensor 84 83 81 Respiratory Rate 22 15 14 Respiratory Effort / Characteristics Respiratory Depth Respiratory Pattern Blood Pressure 138/86 Blood Pressure [Right Arm] Blood Pressure Mean 103 Blood Pressure Mean [Right Arm] Blood Pressure Position Pulse Oximetry 93 96 97 Oxygen Delivery Method 03/01/19 12:00 03/01/19 12:01 03/01/19 12:09 Temperature Temperature Source Sepsis Recent Fever Within 48 Hours Sepsis New/Unexplained Change in Mental Status Sepsis Action Taken by Nursing Pulse Rate 80 76 63 Pulse Rate [Apical] Pulse Rate from SpO2 Sensor 79 76 62 Respiratory Rate 19 17 18 Respiratory Effort / Characteristics Respiratory Depth Respiratory Pattern Blood Pressure 115/63 61/44 L Blood Pressure [Right Arm] Blood Pressure Mean 80 49 Blood Pressure Mean [Right Arm] Blood Pressure Position Pulse Oximetry 96 97 95 Oxygen Delivery Method 03/01/19 12:11 03/01/19 12:15 03/01/19 12:20 Temperature Temperature Source Sepsis Recent Fever Within 48 Hours Sepsis New/Unexplained Change in Mental Status Sepsis Action Taken by Nursing Pulse Rate 59 L 69 73 Pulse Rate [Apical] Pulse Rate from SpO2 Sensor 60 70 74 Respiratory Rate 16 15 22 Respiratory Effort / Characteristics Respiratory Depth Respiratory Pattern Blood Pressure 108/58 L 131/73 Blood Pressure [Right Arm] Blood Pressure Mean 74 92 Blood Pressure Mean [Right Arm] Blood Pressure Position Pulse Oximetry 94 98 100 Oxygen Delivery Method 03/01/19 13:05 03/01/19 13:06 03/01/19 13:10 Temperature Temperature Source Sepsis Recent Fever Within 48 Hours Sepsis New/Unexplained Change in Mental Status Sepsis Action Taken by Nursing Pulse Rate 84 81 82 Pulse Rate [Apical] Pulse Rate from SpO2 Sensor 85 82 Respiratory Rate 12 19 18 Respiratory Effort / Characteristics Respiratory Depth Respiratory Pattern Blood Pressure 139/73 Blood Pressure [Right Arm] Blood Pressure Mean 95 Blood Pressure Mean [Right Arm] Blood Pressure Position Pulse Oximetry 98 98 Oxygen Delivery Method 03/01/19 13:20 03/01/19 13:30 03/01/19 13:40 Temperature Temperature Source Sepsis Recent Fever Within 48 Hours Sepsis New/Unexplained Change in Mental Status Sepsis Action Taken by Nursing Pulse Rate 90 87 89 Pulse Rate [Apical] Pulse Rate from SpO2 Sensor 91 H 86 87 Respiratory Rate 20 14 15 Respiratory Effort / Characteristics Respiratory Depth Respiratory Pattern Blood Pressure 137/78 Blood Pressure [Right Arm] Blood Pressure Mean 97 Blood Pressure Mean [Right Arm] Blood Pressure Position Pulse Oximetry 78 L 98 99 Oxygen Delivery Method 03/01/19 13:50 03/01/19 13:52 03/01/19 14:00 Temperature Temperature Source Sepsis Recent Fever Within 48 Hours Sepsis New/Unexplained Change in Mental Status Sepsis Action Taken by Nursing Pulse Rate 85 94 H Pulse Rate [Apical] Pulse Rate from SpO2 Sensor 86 94 H Respiratory Rate 24 22 Respiratory Effort / Characteristics Respiratory Depth Respiratory Pattern Blood Pressure Blood Pressure [Right Arm] Blood Pressure Mean Blood Pressure Mean [Right Arm] Blood Pressure Position Pulse Oximetry 97 97 100 Oxygen Delivery Method Room Air 03/01/19 14:01 03/01/19 14:10 03/01/19 14:20 Temperature Temperature Source Sepsis Recent Fever Within 48 Hours Sepsis New/Unexplained Change in Mental Status Sepsis Action Taken by Nursing Pulse Rate 91 H 92 H 88 Pulse Rate [Apical] Pulse Rate from SpO2 Sensor 92 H 92 H 89 Respiratory Rate 25 H 17 15 Respiratory Effort / Characteristics Respiratory Depth Respiratory Pattern Blood Pressure 155/90 H Blood Pressure [Right Arm] Blood Pressure Mean 111 Blood Pressure Mean [Right Arm] Blood Pressure Position Pulse Oximetry 100 99 96 Oxygen Delivery Method 03/01/19 14:30 Temperature Temperature Source Sepsis Recent Fever Within 48 Hours Sepsis New/Unexplained Change in Mental Status Sepsis Action Taken by Nursing Pulse Rate 87 Pulse Rate [Apical] Pulse Rate from SpO2 Sensor 88 Respiratory Rate 16 Respiratory Effort / Characteristics Respiratory Depth Respiratory Pattern Blood Pressure 139/80 Blood Pressure [Right Arm] Blood Pressure Mean 99 Blood Pressure Mean [Right Arm] Blood Pressure Position Pulse Oximetry 94 Oxygen Delivery Method GENERAL: Patient is awake, alert, and in no acute distress.Patient is resting c omfortably and showing no signs of anxiety EYES: The conjunctivae are clear. The pupils are round and reactive. EARS, NOSE, MOUTH AND THROAT: The nose is without any evidence of any deformity. Mucous membranes are moist.Tongue is midline NECK: The neck is nontender and supple. RESPIRATORY: Normal respiratory effort is noted. There is no evidence of wheezing rhonchi or rales to auscultation. CARDIOVASCULAR: Regular rate and rhythm noted. There no murmurs rubs or gallops normal S1 normal S2 GASTROINTESTINAL: The abdomen is soft. Bowel sounds are present in all quadrants. Abdomen is nontender. BACK: No midline tenderness or or step-off noted range of motion in flexion extension as well as rotation no signs of muscle spasm noted. MUSCULOSKELETAL/EXTREMITIES: No deformity or pain with range of motion of the left or right hip. Significant limitation in the range of motion of the left shoulder. There is significant tenderness over the anterior aspect of the left shoulder. Pulses were symmetric. No erythema or warmth to the shoulder. SKIN: There is no obvious evidence of any rash. There are no petechiae, pallor or cyanosis noted. NEUROLOGIC: Patient is awake alert and oriented x3. Strength is symmetric. Patellar reflexes are 2+ bilaterally. Course 1005: The patient was evaluated in room A3. A history and physical were performed. 1212: I checked on the patient as he was hypotensive and diaphoretic. 1319: I updated the patient on his CT results. He states that he is not feeling better. He verbalized agreement and understanding of the treatment plan. 1343: I discussed the patient's case with Dr. Remington Cummings who will evaluate the patient for further management. Consultations Consultation #1: Dr. Remington Cummings Time: 13:43 Time: 15:37 Administered Medications Enoxaparin Sodium (Lovenox) 40 mg SQ Q24H ENMA Stop: 03/31/19 16:04 Last Admin: 03/01/19 20:30 Dose: 40 mg Documented by: [id number] Sodium Chloride (Nss 1000ml) 1,000 mls @ 125 mls/hr IV .Q8H ENMA Stop: 03/31/19 16:04 Last Admin: 03/02/19 10:12 Dose: 125 mls/hr Documented by: [id number] Infusion: 03/02/19 10:12 Dose: 125 mls/hr Documented by: [id number] Admin: 03/02/19 02:22 Dose: 125 mls/hr Documented by: [id number] Infusion: 03/02/19 02:21 Dose: 0 mls/hr Documented by: [id number] Admin: 03/01/19 18:09 Dose: 125 mls/hr Documented by: [id number] Ampicillin Sodium/Sulbactam Sodium 3,000 mg/ Sodium Chloride 108 mls @ 200 mls/hr IV Q6H ENMA; Protocol Stop: 03/11/19 16:04 Last Infusion: 03/02/19 11:11 Dose: 0 mls/hr Documented by: [id number] Admin: 03/02/19 10:12 Dose: 200 mls/hr Documented by: [id number] Infusion: 03/02/19 05:15 Dose: 0 mls/hr Documented by: [id number] Admin: 03/02/19 04:45 Dose: 200 mls/hr Documented by: [id number] Infusion: 03/01/19 23:47 Dose: 0 mls/hr Documented by: [id number] Admin: 03/01/19 22:43 Dose: 200 mls/hr Documented by: [id number] Infusion: 03/01/19 18:52 Dose: 0 mls/hr Documented by: [id number] Admin: 03/01/19 18:09 Dose: 200 mls/hr Documented by: [id number] Methylprednisolone 40 mg/ (Syringe) 0.64 mls @ 1.5 mls/min IV Q8H ENMA Stop: 03/31/19 17:59 Last Admin: 03/02/19 10:11 Dose: 1.5 mls/min Documented by: [id number] Admin: 03/02/19 01:02 Dose: 1.5 mls/min Documented by: [id number] Admin: 03/01/19 18:10 Dose: 1.5 mls/min Documented by: [id number] Ioversol (Optiray 320 125ml) 119 ml IV ONCE PRN PRN Reason: Interaction Checking Stop: 03/05/19 12:37 Last Admin: 03/01/19 12:39 Dose: 119 ml Documented by: [id number] Discontinued Medications Sodium Chloride (Nss 1000ml) 1,000 mls @ 999 mls/hr IV .Q1H1M ONE Stop: 03/01/19 13:14 Last Infusion: 03/01/19 15:04 Dose: 0 mls/hr Documented by: [id number] Admin: 03/01/19 13:02 Dose: 999 mls/hr Documented by: [id number] Oxycodone HCl (Roxicodone Immediate Rel) 5 mg PO NOW STA Stop: 03/01/19 10:11 Last Admin: 03/01/19 10:24 Dose: 5 mg Documented by: [id number] Medical Decision Making Differential Diagnosis Differential diagnosis: Etiologies such as fracture, dislocation, neurovascular compromise, compartment syndrome, soft tissue injury, as well as others were entertained. Medical Records Attestation: I reviewed the patient's medical records. Home Medications Current Medication List: was personally reviewed by me Laboratory Data Attestation: I reviewed the patient's lab results. Result diagrams: 03/02/19 07:08 03/02/19 07:08 Lab Results 03/01/19 03/01/19 03/01/19 Range/Units 10:16 10:16 10:16 WBC 8.95 (4.8-10.8) K/uL RBC 4.68 L (4.7-6.1) M/uL Hgb 14.0 (14.0-18.0) g/dL Hct 41.0 L (42-52) % MCV 87.6 (80-100) fL MCH 29.9 (25-34) pg MCHC 34.1 (32-36) g/dL RDW Std Deviation 40.9 (36.4-46.3) fL RDW Coeff of Jay 12.8 (11.5-14.5) % Plt Count 147 (130-400) K/uL MPV 10.2 (7.4-10.4) fL Immature Gran % (Auto) 0.2 % Neut % (Auto) 79.4 % Lymph % (Auto) 10.5 % Stevens % (Auto) 7.4 % Eos % (Auto) 2.2 % Baso % (Auto) 0.3 % Immature Gran # (Auto) 0.02 (0.00-0.02) K/uL Neut # (Auto) 7.10 H (1.4-6.5) K/uL Lymph # (Auto) 0.94 L (1.2-3.4) K/uL Stevens # (Auto) 0.66 H (0.11-0.59) K/uL Eos # (Auto) 0.20 (0-0.5) K/uL Baso # (Auto) 0.03 (0-0.2) K/uL ESR 49 H (0-14) mm/hr PT (9.0-12.0) Seconds INR (0.9-1.1) APTT (21.0-31.0) Seconds PTT Ratio Sodium (136-145) mmol/L Potassium (3.5-5.1) mmol/L Chloride (98-107) mmol/L Carbon Dioxide (21-32) mmol/L Anion Gap (3-11) BUN (7-18) mg/dl Creatinine (0.6-1.4) mg/dl Est Cr Clr Drug Dosing ml/min Est GFR ( Amer) Est GFR (Non-Af Amer) BUN/Creatinine Ratio (10-20) Glucose (70-99) mg/dl Calcium (8.5-10.1) mg/dl Total Bilirubin (0.2-1) mg/dl AST (15-37) U/L ALT (12-78) U/L Alkaline Phosphatase (45-117) U/L Troponin I (0-0.045) ng/ml C-Reactive Protein (0-0.29) mg/dl Total Protein (6.4-8.2) gm/dl Albumin (3.4-5.0) gm/dl Globulin (2.5-4.0) gm/dl Albumin/Globulin Ratio (0.9-2) Lipase (73-393) U/L Urine Color Urine Appearance (Clear) Urine pH (4.5-7.5) Ur Specific [place] (1.000-1.030) Urine Protein (Negative) Urine Glucose (UA) (Negative) Urine Ketones (Negative) Urine Blood (Negative) Urine Nitrite (Negative) Urine Bilirubin (Negative) Urine Urobilinogen (Negative) Ur Leukocyte Esterase (Negative) Urine WBC (Auto) (0-5) /hpf Urine RBC (Auto) (0-4) /hpf U Hyaline Cast (Auto) (0-5) /lpf U Epithel Cells (Auto) (0-5) /lpf Urine Bacteria (Auto) (Negative) Lyme Disease IgG Ab Negative (Negative) Lyme Disease IgM Ab Negative (Negative) Hepatitis C Ab Screen (Neg) 03/01/19 03/01/19 03/01/19 Range/Units 10:16 10:16 10:16 WBC (4.8-10.8) K/uL RBC (4.7-6.1) M/uL Hgb (14.0-18.0) g/dL Hct (42-52) % MCV (80-100) fL MCH (25-34) pg MCHC (32-36) g/dL RDW Std Deviation (36.4-46.3) fL RDW Coeff of Jay (11.5-14.5) % Plt Count (130-400) K/uL MPV (7.4-10.4) fL Immature Gran % (Auto) % Neut % (Auto) % Lymph % (Auto) % Stevens % (Auto) % Eos % (Auto) % Baso % (Auto) % Immature Gran # (Auto) (0.00-0.02) K/uL Neut # (Auto) (1.4-6.5) K/uL Lymph # (Auto) (1.2-3.4) K/uL Stevens # (Auto) (0.11-0.59) K/uL Eos # (Auto) (0-0.5) K/uL Baso # (Auto) (0-0.2) K/uL ESR (0-14) mm/hr PT 11.0 (9.0-12.0) Seconds INR 1.1 (0.9-1.1) APTT 28.1 (21.0-31.0) Seconds PTT Ratio 1.0 Sodium 137 (136-145) mmol/L Potassium 4.3 (3.5-5.1) mmol/L Chloride 104 (98-107) mmol/L Carbon Dioxide 27 (21-32) mmol/L Anion Gap 6.0 (3-11) BUN 18 (7-18) mg/dl Creatinine 1.34 (0.6-1.4) mg/dl Est Cr Clr Drug Dosing 55.4 ml/min Est GFR ( Amer) 60.5 Est GFR (Non-Af Amer) 52.2 BUN/Creatinine Ratio 13.5 (10-20) Glucose 121 H (70-99) mg/dl Calcium 9.5 (8.5-10.1) mg/dl Total Bilirubin 0.6 (0.2-1) mg/dl AST 16 (15-37) U/L ALT 25 (12-78) U/L Alkaline Phosphatase 97 (45-117) U/L Troponin I < 0.015 (0-0.045) ng/ml C-Reactive Protein 2.82 H (0-0.29) mg/dl Total Protein 7.8 (6.4-8.2) gm/dl Albumin 3.6 (3.4-5.0) gm/dl Globulin 4.2 H (2.5-4.0) gm/dl Albumin/Globulin Ratio 0.9 (0.9-2) Lipase 116 (73-393) U/L Urine Color Urine Appearance (Clear) Urine pH (4.5-7.5) Ur Specific [place] (1.000-1.030) Urine Protein (Negative) Urine Glucose (UA) (Negative) Urine Ketones (Negative) Urine Blood (Negative) Urine Nitrite (Negative) Urine Bilirubin (Negative) Urine Urobilinogen (Negative) Ur Leukocyte Esterase (Negative) Urine WBC (Auto) (0-5) /hpf Urine RBC (Auto) (0-4) /hpf U Hyaline Cast (Auto) (0-5) /lpf U Epithel Cells (Auto) (0-5) /lpf Urine Bacteria (Auto) (Negative) Lyme Disease IgG Ab (Negative) Lyme Disease IgM Ab (Negative) Hepatitis C Ab Screen Neg (Neg) 03/01/19 Range/Units 13:50 WBC (4.8-10.8) K/uL RBC (4.7-6.1) M/uL Hgb (14.0-18.0) g/dL Hct (42-52) % MCV (80-100) fL MCH (25-34) pg MCHC (32-36) g/dL RDW Std Deviation (36.4-46.3) fL RDW Coeff of Jay (11.5-14.5) % Plt Count (130-400) K/uL MPV (7.4-10.4) fL Immature Gran % (Auto) % Neut % (Auto) % Lymph % (Auto) % Stevens % (Auto) % Eos % (Auto) % Baso % (Auto) % Immature Gran # (Auto) (0.00-0.02) K/uL Neut # (Auto) (1.4-6.5) K/uL Lymph # (Auto) (1.2-3.4) K/uL Stevens # (Auto) (0.11-0.59) K/uL Eos # (Auto) (0-0.5) K/uL Baso # (Auto) (0-0.2) K/uL ESR (0-14) mm/hr PT (9.0-12.0) Seconds INR (0.9-1.1) APTT (21.0-31.0) Seconds PTT Ratio Sodium (136-145) mmol/L Potassium (3.5-5.1) mmol/L Chloride (98-107) mmol/L Carbon Dioxide (21-32) mmol/L Anion Gap (3-11) BUN (7-18) mg/dl Creatinine (0.6-1.4) mg/dl Est Cr Clr Drug Dosing ml/min Est GFR ( Amer) Est GFR (Non-Af Amer) BUN/Creatinine Ratio (10-20) Glucose (70-99) mg/dl Calcium (8.5-10.1) mg/dl Total Bilirubin (0.2-1) mg/dl AST (15-37) U/L ALT (12-78) U/L Alkaline Phosphatase (45-117) U/L Troponin I (0-0.045) ng/ml C-Reactive Protein (0-0.29) mg/dl Total Protein (6.4-8.2) gm/dl Albumin (3.4-5.0) gm/dl Globulin (2.5-4.0) gm/dl Albumin/Globulin Ratio (0.9-2) Lipase (73-393) U/L Urine Color Yellow Urine Appearance Clear (Clear) Urine pH 7.5 (4.5-7.5) Ur Specific [place] 1.028 (1.000-1.030) Urine Protein Negative (Negative) Urine Glucose (UA) Negative (Negative) Urine Ketones Negative (Negative) Urine Blood Negative (Negative) Urine Nitrite Negative (Negative) Urine Bilirubin Negative (Negative) Urine Urobilinogen Negative (Negative) Ur Leukocyte Esterase Negative (Negative) Urine WBC (Auto) 1-5 (0-5) /hpf Urine RBC (Auto) 0-4 (0-4) /hpf U Hyaline Cast (Auto) 1-5 (0-5) /lpf U Epithel Cells (Auto) 10-20 H (0-5) /lpf Urine Bacteria (Auto) Negative (Negative) Lyme Disease IgG Ab (Negative) Lyme Disease IgM Ab (Negative) Hepatitis C Ab Screen (Neg) Imaging Data Radiologist's Impression: Radiology results as stated below per my review and the radiologist's interpretation: XR chest 1V portable CLINICAL HISTORY: 73 years-old Male presenting with Chest Pain. TECHNIQUE: Portable upright AP view of the chest was obtained. COMPARISON: None. FINDINGS: Atherosclerosis of the aortic arch. Cardiac silhouette normal in size. Mildly low lung volumes with hypoventilatory changes. Minimal basilar opacities. No pleural effusion or pneumothorax. Degenerative changes of the thoracic spine. Upper abdomen normal. IMPRESSION: 1. Minimal basilar opacities likely atelectasis or scarring. No convincing evidence of acute cardiopulmonary disease. Electronically signed by: Ori Ding M.D. 03/01/2019 10:51 AM XR shoulder LT min 2V routine CLINICAL HISTORY: 73 years-old Male presenting with chest and left shoulder pain, atraumatic. TECHNIQUE: External rotation, internal rotation, Grashey views of the left shoulder were obtained. COMPARISON: None. FINDINGS: Acromioclavicular and glenohumeral joints congruent. No acute fracture or malalignment. No advanced degenerative change. Opacity at the left lung base effusion may be present. Overall low lung volume on the left. IMPRESSION: 1. No acute osseous injury. 2. Left basilar atelectasis versus trace left pleural effusion in the setting of low lung volume on the left.. Electronically signed by: Ori Ding M.D. 03/01/2019 10:53 AM XR hip LT min 2V HISTORY: 73 years-old Male pain acute left hip pain without reported trauma COMPARISON: None available TECHNIQUE: 2 views of the left hip FINDINGS: Mild to moderate left hip osteoarthritis. No acute fracture, dislocation or avascular necrosis. Degenerative changes of the pelvis and imaged lumbar spine. Calcifications of the pelvis are suggestive of phleboliths. IMPRESSION: No acute fracture or dislocation. The above report was generated using voice recognition software. It may contain grammatical, syntax or spelling errors. Electronically signed by: Fito Canas M.D. 03/01/2019 10:[address] ANGIOGRAM OF THE CHEST; CT SCAN OF THE ABDOMEN AND PELVIS WITH IV CONTRAST CLINICAL HISTORY: Atypical chest pain. Generalized abdominal pain. COMPARISON STUDY: Chest x-ray dated 03/01/2019. TECHNIQUE: Following the IV administration of 119 of Optiray 320, CT angiogram of the chest is performed from the upper abdomen to the thoracic inlet utilizing the pulmonary embolus protocol. Images are reviewed in the axial, sagittal, coronal planes. 3-D MIPS images are created and assessed. Subsequently, CT scan of the abdomen and pelvis was performed from the lung bases to the proximal femora. Images are reviewed in the axial, sagittal, and coronal planes. IV contrast was administered without complication. A dose lowering technique was utilized adhering to the principles of ALARA. The examination is significantly degraded by motion artifact. CT DOSE: 1472.12 mGy.cm FINDINGS: CHEST: Thyroid: The thyroid gland is markedly enlarged and heterogeneous, and extends i nto the superior mediastinum. The appearance is consistent with a multinodular goiter. Small calcifications are noted in the left lobe. Thoracic aorta: The thoracic aorta is normal in caliber and demonstrates bovine variant arch anatomy. No dissection is seen. Pulmonary vasculature: The pulmonary trunk is on the dilated measuring 3.4 cm in diameter. This suggests pulmonary artery hypertension. There are no filling defects identified in the main, lobar, or proximal segmental pulmonary arteries to indicate pulmonary embolus. Evaluation of the peripheral branches is significantly degraded by motion artifact. Heart: The heart is normal enlarged and without pericardial effusion. There are coronary artery calcifications. Lungs and pleural spaces: Evaluation of lung parenchyma is degraded by motion artifact. There is bibasilar scarring/atelectasis. No airspace consolidation or pleural effusion is identified. Accessory azygous fissure is incidentally noted. The trachea and central airways are clear. Mediastinum: There are numerous mildly enlarged mediastinal lymph nodes. Peritracheal nodes measure up to 12 mm in short axis. Prevascular nodes measure up to 10 mm in short axis. Eliza: There is hilar adenopathy. Hilar nodes measure up to 13 mm in short axis. Axillae: There are mildly enlarged right axillary lymph nodes which measure up to 12 mm in short axis no left axillary adenopathy is seen. Bony thorax: The skeletal structures are osteopenic. There is a large hemangioma in the body of T10. No lytic or blastic lesions are identified. ABDOMEN AND PELVIS: Liver: The contrast-enhanced liver is normal in size, contour, and attenuation. There is no intrahepatic or ductal dilatation. The hepatic veins and portal veins are patent. A 2.1 cm cyst is noted in the left lobe. Gallbladder: Unremarkable. Spleen: Normal in size and attenuation. Pancreas: Unremarkable. Adrenal glands: Unremarkable. Kidneys: The contrast enhanced kidneys demonstrate cortical atrophy. There is moderate to severe right hydronephrosis. The right ureter is normal in caliber and no obstructing lesion is identified. 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 There is no left-sided hydronephrosis. The kidneys enhance symmetrically. There are least 2 nonobstructing right renal calculi which measure up to 11 mm. A 12 cm exophytic cyst arises posteriorly from the right kidney. Additional smaller cysts are seen bilaterally. There is a 1.4 cm lesion in the lower pole of left kidney seen on image #[id number] which does not meet criteria for a simple cyst. Abdominal vasculature: There is moderate atherosclerotic calcification and mild ectasia of the abdominal aorta. Bowel: There is advanced colonic diverticulosis without CT evidence of acute diverticulitis. Colonic fecal retention is observed. No bowel obstruction is seen. The appendix is well-visualized and normal. Peritoneum: There is no intraperitoneal free air or abdominal ascites. There is a small fat-containing umbilical hernia. Lymphadenopathy: A mildly enlarged right cardiophrenic node measures 9 mm in short axis. A prominent portacaval node measures 11 mm short axis. There is no mesenteric, retroperitoneal, pelvic sidewall, or inguinal lymphadenopathy. Pelvic viscera: The prostate gland is enlarged and heterogeneous noting median lobe hypertrophy. The bladder is distended. The bladder wall is mildly thickened and trabeculated indicating chronic caliber obstruction. There is a small fat- containing right inguinal hernia as well as a fat-containing right suprainguinal hernia seen on image #405. Skeletal structures: The skeletal structures are osteopenic. There is mild lumbosacral spondylosis. Degenerative change is also noted in the hips and sacroiliac joints. No lytic or blastic lesions are seen. IMPRESSION: 1. There is no evidence of pulmonary embolus in the main, lobar, or proximal segmental pulmonary arteries. Evaluation of the peripheral branches is degraded by motion artifact. 2. Cardiomegaly. 3. There is no airspace consolidation or pleural effusion. 4. There is moderate to severe right hydronephrosis. The right ureter is normal in caliber, and no obstructing stone/lesion is identified. 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 The right kidney enhances homogeneously and there is no surrounding inflammation. Nonemergent follow-up with urology is recommended. 5. Nonobstructing right renal calculi. 6. There is a 1.4 cm lesion identified in the lower pole of left kidney that does not meet criteria for a simple cyst. Although this could represent a complex cyst, follow-up with a nonemergent renal protocol MRI is recommended to exclude underlying neoplasm. 7. Advanced colonic diverticulosis without CT evidence of acute diverticulitis. 8. Prostatomegaly with evidence of chronic bladder outlet obstruction. 9. There is a small fat-containing right inguinal hernia as well as a fat- containing right suprainguinal hernia. 10. The thyroid gland is markedly enlarged and heterogeneous consistent with multinodular goiter. 11. There are enlarged and pathologically indeterminant mediastinal, hilar, and right axillary lymph nodes. 12. Additional findings as above. Electronically signed by: Nelson Forrester M.D. 03/01/2019 1:09 PM ECG Data Attestation: I personally reviewed and interpreted this ECG as follows: Indication: other (arm pain) Rate (beats per minute): 90 Rhythm: normal sinus Findings: + other (LVH); no PAC, no PVC, no ST depression, no ST elevation, no acute ischemic change and no ectopy Comparison ECG Date: from (10/22/00) Change: no significant change Additional Comments: repeat ECG: sinus bradycardia, 61, no ectopy, no ST segments, no change from earlier tracing Blood Pressure Blood Pressure Findings: Low blood pressure Blood Pressure Disposition: further management by hospitalist HAJA Newby The patient is a 73-year-old male who presented to the emergency department for an evaluation of left shoulder pain and left hip pain. The patient's pain was felt to be musculoskeletal. He reports that he was working outside yesterday doing strenuous activity. The patient was sent to the emergency department by his primary care physician's office presumably for the possibility that this could be referred pain. Discussed the patient's laboratory and radiographic studies with him. He had an episode where he became very hypotensive and diaphoretic. I was concerned that this could represent an underlying intra-abdominal or intrathoracic issue. Further CAT scanning was obtained. I discussed these findings with the patient and his significant other. The patient was significantly improved after IV fluids. I discussed his case with the on-call [facility] hospitalist group. I was very concerned there could be an underlying issue it was not being picked up in the evaluation or possibly this could be related to the patient's hydronephrosis. The hospitalist group has agreed to evaluate the patient in the emergency department for further management and disposition. Impression & Plan Hypotension, Left shoulder pain, Left hip pain, Hydronephrosis Discharge Plan Visit Data *Final* Discharge Date/Time: 03/01/19 15:00 Chief Complaint: Illness Stated Complaint: PAIN LEFT ARM, AND HIP ED Provider: Jeffrey Adams Discharge Problem: Hypotension, Left shoulder pain, Left hip pain, Hydronephrosis Patient Disposition: Admitted As Inpatient Discharge Instructions Interventions: ED Discharge Assessment Last Done: 03/01/19 15:00 Discharge Problem: Hypotension Qualifiers: Hypotension type: unspecified hypotension type Qualified Code(s): I95.9 - Hypotension, unspecified Left shoulder pain Qualifiers: Chronicity: acute Qualified Code(s): M25.512 - Pain in left shoulder Hydronephrosis Qualifiers: Hydronephrosis type: unspecified Qualified Code(s): N13.30 - Unspecified hydronephrosis The scribe's documentation has been prepared under my direction and personally reviewed by me in its entirety. I confirm that the note above accurately reflec ts all work, treatment, procedures, and medical decision making performed by me.
[2019-03-01] MEDS ORDERED: ALUMINUM/MAGNESIUM SUSP 30 ML UDC PO PRN (16:05)
[2019-03-01] MEDS ORDERED: ACETAMINOPHEN 325 MG TAB PO PRN (16:05)
[2019-03-01] MEDS ORDERED: ONDANSETRON INJ 2 MG/ML 2 ML VIAL IV PRN (16:05)
[2019-03-01] MEDS: SODIUM CHLORIDE 0.9% 1000ML 1,000 ML IV SCH (18:09)
[2019-03-01] MEDS: AMPICILLIN/SULBACTAM SOD 3,000 MG in 0.9 % SODIUM CHLORIDE 100 ML IV SCH ×2 (18:09→22:43)
[2019-03-01] MEDS: methylPREDNISolone 40 MG in SYRINGE 0 ML IV SCH (18:10)
[2019-03-01] MEDS: ENOXAPARIN INJ 40 MG/0.4 ML SYR SQ SCH (20:30)
[2019-03-02] MEDS: methylPREDNISolone 40 MG in SYRINGE 0 ML IV SCH ×2 (01:02→10:11)
[2019-03-02] MEDS: SODIUM CHLORIDE 0.9% 1000ML 1,000 ML IV SCH ×3 (02:22→17:08)
[2019-03-02] MEDS: AMPICILLIN/SULBACTAM SOD 3,000 MG in 0.9 % SODIUM CHLORIDE 100 ML IV SCH ×4 (04:45→22:50)
[2019-03-02 07:24] LABS: Hematocrit (blood only) 39.4 % (42-52); Hemoglobin 13.6 g/dL (14.0-18.0); Immature Granulocytes # (auto) 0.01 K/uL (0.00-0.02); Immature Granulocytes % (auto) 0.2 %; Lymphocytes # (auto) 0.68 K/uL (1.2-3.4); Lymphocytes % (auto) 10.9 %; Mean Corpuscular Hgb Conc 34.5 g/dL (32-36); Mean Corpuscular Volume 86.8 fL (80-100); Mean Platelet Volume 10.7 fL (7.4-10.4); Monocytes # (auto) 0.07 K/uL (0.11-0.59); Monocytes % (auto) 1.1 %; Neutrophils # (auto) 5.47 K/uL (1.4-6.5); Neutrophils % (auto) 87.8 %; Platelet Count 152 K/uL (130-400); RDW Coefficient of Variation 12.6 % (11.5-14.5); RDW Standard Deviation 40.5 fL (36.4-46.3); Red Blood Count 4.54 M/uL (4.7-6.1); White Blood Count 6.23 K/uL (4.8-10.8)
[2019-03-02 07:55] LABS: Calcium 8.9 mg/dl (8.5-10.1); Creatinine Clr Calc Pharmacy 60.2 ml/min; Est GFR (African American) 67.1; Est GFR (Non-African American) 57.9; Potassium 4.4 mmol/L (3.5-5.1)
--- NOTE | 2019-03-02 10:34 | Urology Consultation ---
Date of Consultation March 02, 2019 Assessment & Plan (1) Hydronephrosis: 73 YO male with right UPJ obstruction, resulting hydronephrosis and a left renal cyst of questionable complexity. Patient is not experiencing any flank pain or urinary bother. His Cr remains WNL. No acute urologic intervention. Will arrange outpatient URO follow up including Mag 3 Lasix scan for detailed evaluation of UPJ. Likely future imaging of left renal cyst. Patient and spouse voice understanding of treatment plan. Thank you for allowing us to participate in the inpatient care of Mr. Bryant. Please contact our service with additional questions/concerns. (2) Renal cyst, left: (3) Obstruction of right ureteropelvic junction (UPJ): History of Present Illness Reason for Consultation: UPJ obstruction Attending Physician: Fahad Bundy History of Present Illness Mr. Bryant is a pleasant 73 YO male who reported to the ER this morning after feeling unwell, dizzy, weakness. He also reports some left shoulder and left hip pain after painting on a ladder yesterday. His CT scan upon arrival reveals an apparent right UPJ obstruction with resulting hydronephrosis and a left renal cyst of questionable complexity. No stones or masses. This morning he reports feeling well. He has never seen a urologist, urination is not bothersome. Not experiencing any flank pain. No history of hematuria or infections. Allergies Allergy/AdvReac Type Severity Reaction Status Date / Time No Known Allergies Allergy Verified 03/01/19 10:55 Home Medications Home Medications Medication Instructions Recorded Confirmed Type losartan-hydrochlorothiazide 1 tab PO DAILY 03/01/19 03/01/19 History Patient History Medical History DVT prophylaxis Hypertension (Chronic) Hypotension (Acute) Left shoulder pain (Acute) Hydronephrosis (Acute) HTN (hypertension) (Chronic) Social History Preferred Language: Malay Communication Ability: Effective Rhinestone Setter Required: No Beliefs That Will Affect Care: None Current Living Situation: Spouse Other Information That Helps Us Care for You: No Feels Safe at Home: Yes Safety Concerns: Feels Safe At This Time Smoking Status: Unknown if ever smoked Hx Alcohol Use: No Hx Substance Use: No Review of Systems Constitutional: no fever and no chills Eyes: no worsening vision Ear, Nose, Mouth, Throat: no hearing loss Respiratory: no dyspnea Cardiovascular: no chest pain Gastrointestinal: no abdominal pain, no nausea and no vomiting Genitourinary: no dysuria, no difficulty urinating, no hematuria and no flank pain Musculoskeletal: no back pain Neurologic: no confusion Psychiatric: no problem reported Endocrine: no fatigue Physical Exam Constitutional: WD/WN, vitals as above ENMT: Ears: no hearing impairment Neck: normal visual inspection Respiratory: normal respiratory effort; no labored breathing and does not use accessory muscles Cardiovascular: Vessels: no JVD Gastrointestinal (Abdomen): Percussion/Palpation: abdomen soft; abdomen nontender Psychiatric: A+Ox3, euthymic affect Genitourinary: no CVA tenderness Results & Data Vital Signs (Past 12 Hours) Vital Signs Temp Pulse Pulse Resp BP Pulse Ox 03/02/19 07:46 36.6 C 94 H 12 158/79 H 91 03/02/19 03:45 36.6 C 81 18 138/78 92 03/02/19 00:34 36.3 C L 88 18 132/76 95 03/01/19 23:48 92 H (1) Hydronephrosis Hydronephrosis type: unspecified Qualified Code(s): N13.30 - Unspecified hydronephrosis
--- NOTE | 2019-03-02 20:19 | Hospitalist Progress Note ---
Date of Service March 02, 2019 Assessment & Plan (1) Hypotension: Transient hypotension in the ER at presentation - rapidly resolved. Vagal response in setting of severe shoulder pain? No evidence of sepsis, adrenal insufficiency, etc. Stop fluids. Stop steroids. Monitor. Present on Admission?: Yes (2) Hydronephrosis: Right hydronephrosis noted incidentally on CT suggesting right UPJ obstruction. Urology consult appreciated. Outpatient w/u recommended. Slight possibility this could have been from a passed renal stone on that side but doubtful. Present on Admission?: Yes (3) Left shoulder pain: bursitis/tendonitis - improved. stop steroids. ice/nsaids at d/c. imaging noted. Present on Admission?: Yes (4) Hypertension: If BPs and Cr remain stable then resume normal BP meds. (5) Obstruction of right ureteropelvic junction (UPJ): see above appreciate urology consult outpatient cysto and other work-up (6) Renal cyst, left: could be RCC will need follow-up with urology (7) Lymphadenopathy: reactive due to viral process? cancer? at MINIMUM will need repeat imaging and if any persistence work-up would be needed (8) Multinodular goiter: check TSH and free T4 am no symptoms of hyperthyroidism, however (9) Left hip pain: resolved due to overuse from recent climbing of ladders, etc (10) DVT prophylaxis: Lovenox updated at bedside hopefully home tomorrow Subjective left shoulder pain much improved. still w/ mild pain with rotation and abduction. pain started AFTER he spent much of a day painting, carrying buckets, and climbing ladders. no pain prior to that. left hip pain resolved. episode of nausea/abd upset, dizziness and diaphoresis started in the midst of SEVERE left shoulder pain. good appetite. no dizziness. tele normal. prior to the events of last day he had been feeling well. Review of Systems Constitutional: no fever, no chills and no anorexia Respiratory: no cough and no dyspnea Cardiovascular: no chest pain, no orthopnea, no paroxysmal nocturnal dyspnea and no edema Gastrointestinal: no abdominal pain, no nausea, no vomiting and no diarrhea/loose stools Genitourinary: no dysuria Musculoskeletal: as per Subjective / HPI Integumentary: no rash Physical Exam Constitutional: WD/WN, vitals as above average body habitus; no acute distress and no altered mental status ENMT: external ear and nose normal, oropharynx normal Respiratory: normal respiratory effort, lungs clear to auscultation Cardiovascular: Rate/Rhythm: regular rate and regular rhythm Heart Sounds: normal S1 and normal S2; no murmur Vessels: posterior tibial pulses present and dorsalis pedis pulses present; no JVD Gastrointestinal (Abdomen): normal bowel sounds, soft, nontender, no hepatosplenomegaly Musculoskeletal: left shoulder - no effusion; no tenderness to subacromial bursa. Mild tenderness with internal and external rotation. Mild pain with abduction. left hip - no tenderness to palpation over trochanteric bursal area. Skin: no rashes, warm and dry Psychiatric: A+Ox3, euthymic affect Results & Data Vital Signs (Past 12 Hours) Vital Signs Temp Pulse Pulse Pulse Resp BP Pulse Ox 03/02/19 19:36 36.8 C 101 H 15 153/82 H 93 03/02/19 16:05 88 03/02/19 15:01 36.4 C L 91 H 18 159/80 H 94 Laboratory Results Laboratory Results - last 24 hr 03/01/19 03/02/19 03/02/19 10:16 07:08 07:08 WBC 6.23 RBC 4.54 L Hgb 13.6 L Hct 39.4 L MCV 86.8 MCH 30.0 MCHC 34.5 RDW Std Deviation 40.5 RDW Coeff of Jay 12.6 Plt Count 152 MPV 10.7 H Immature Gran % (Auto) 0.2 Neut % (Auto) 87.8 Lymph % (Auto) 10.9 [place] % (Auto) 1.1 Eos % (Auto) 0.0 Baso % (Auto) 0.0 Immature Gran # (Auto) 0.01 Neut # (Auto) 5.47 Lymph # (Auto) 0.68 L [place] # (Auto) 0.07 L Eos # (Auto) 0.00 Baso # (Auto) 0.00 Sodium 138 Potassium 4.4 Chloride 106 Carbon Dioxide 24 Anion Gap 7.0 BUN 19 H Creatinine 1.23 Est Cr Clr Drug Dosing 60.2 Est GFR ( Amer) 67.1 Est GFR (Non-Af Amer) 57.9 BUN/Creatinine Ratio 15.0 Glucose 137 H Calcium 8.9 Hepatitis C Ab Screen Neg (1) Hydronephrosis Hydronephrosis type: unspecified Qualified Code(s): N13.30 - Unspecified hydronephrosis (2) Left shoulder pain Chronicity: acute Qualified Code(s): M25.512 - Pain in left shoulder (3) Hypertension Hypertension type: essential hypertension Qualified Code(s): I10 - Essential (primary) hypertension (4) Hypotension Hypotension type: unspecified hypotension type Qualified Code(s): I95.9 - Hypotension, unspecified
[2019-03-02] MEDS: ENOXAPARIN INJ 40 MG/0.4 ML SYR SQ SCH (20:58)
[2019-03-03] MEDS: AMPICILLIN/SULBACTAM SOD 3,000 MG in 0.9 % SODIUM CHLORIDE 100 ML IV SCH (04:12)
[2019-03-03 08:08] LABS: Basophils # (auto) 0.01 K/uL (0-0.2); Basophils % (auto) 0.1 %; Eosinophils # (auto) 0.01 K/uL (0-0.5); Eosinophils % (auto) 0.1 %; Hematocrit (blood only) 39.6 % (42-52); Hemoglobin 13.6 g/dL (14.0-18.0); Immature Granulocytes # (auto) 0.03 K/uL (0.00-0.02); Immature Granulocytes % (auto) 0.3 %; Lymphocytes # (auto) 1.51 K/uL (1.2-3.4); Mean Corpuscular Hgb Conc 34.3 g/dL (32-36); Mean Platelet Volume 10.2 fL (7.4-10.4); Monocytes # (auto) 0.78 K/uL (0.11-0.59); Monocytes % (auto) 7.2 %; Neutrophils # (auto) 8.43 K/uL (1.4-6.5); Neutrophils % (auto) 78.3 %; Platelet Count 172 K/uL (130-400); RDW Coefficient of Variation 12.9 % (11.5-14.5); RDW Standard Deviation 41.1 fL (36.4-46.3); Red Blood Count 4.55 M/uL (4.7-6.1); White Blood Count 10.77 K/uL (4.8-10.8)
[2019-03-03 08:43] LABS: BUN Creatinine Ratio 17.8 (10-20); Calcium 9.1 mg/dl (8.5-10.1); Creatinine Clr Calc Pharmacy 57.3 ml/min; Est GFR (African American) 62.7; Est GFR (Non-African American) 54.1; Potassium 3.9 mmol/L (3.5-5.1)
[2019-03-03 08:53] LABS: T4 Free Thyroxine 1.12 ng/dl (0.8-1.6)
--- NOTE | 2019-03-09 23:06 | Discharge Summary ---
Date of Service date of admission - March 01, 2019 date of discharge - March 03, 2019 Admission HPI Per Admitting Provider 73-year-old white male who I suspect has 2 separate problems. He developed left shoulder discomfort and limited range of motion and left hip pain after he was painting on a ladder yesterday. I suspect he may have simply sprained the joints and/or strained musculature in the area. This will be treated conservatively with several doses of Solu-Medrol then reassessed. The more pressing issue is that he had chills, pallor, and weakness this morning and came to the ED for evaluation. He denies chest pain or shortness of breath. No melena or hematochezia. He had a transient hypotensive episode in the ED. Chest CTA is negative for PE. Abdominal CT scan reveals moderately severe right hydronephrosis suggesting the possibility of right UPJ obstruction. There is a 1.4 cm left renal mass that also needs to be evaluated. There is some lymphadenopathy in the region of the mediastinum, hilum, right axilla. EKG reveals normal sinus rhythm with no acute changes. He does have a conduction delay. He will need to be treated as possible sepsis. Blood and urine cultures requested and he has been started on Unasyn. Lactic acid is pending. Urology will be consulted. Admit to telemetry. Continue IV fluids. Hold antihypertensive medications for now. Principal Diagnosis suspected vasovagal episode Discharge Exam Constitutional WD/WN, vitals as above average body habitus; no acute distress and no altered mental status ENMT external ear and nose normal, oropharynx normal Respiratory normal respiratory effort, lungs clear to auscultation Cardiovascular Rate/Rhythm: regular rate and regular rhythm Heart Sounds: normal S1 and normal S2; no murmur Vessels: posterior tibial pulses present and dorsalis pedis pulses present; no JVD Gastrointestinal (Abdomen) normal bowel sounds, soft, nontender, no hepatosplenomegaly Musculoskeletal left shoulder - minimal impingement signs especially with internal rotation. left hip - passive ROM causes no pain or tenderness. Trochanteric bursal region w/o tenderness. Skin no rashes, warm and dry Psychiatric A+Ox3, euthymic affect Lymphatic + axillary lymphadenopathy (right, about 1.5cm in size) Discharge Data Allergies Allergy/AdvReac Type Severity Reaction Status Date / Time No Known Drug Allergies AdvReac Unknown Verified 03/09/19 08:54 Consultations [facility] Ordered Studies CTA chest, CT abd/pelvis - IMPRESSION: 1. There is no evidence of pulmonary embolus in the main, lobar, or proximal segmental pulmonary arteries. Evaluation of the peripheral branches is degraded by motion artifact. 2. Cardiomegaly. 3. There is no airspace consolidation or pleural effusion. 4. There is moderate to severe right hydronephrosis. The right ureter is normal in caliber, and no obstructing stone/lesion is identified. 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 The right kidney enhances homogeneously and there is no surrounding inflammation. Nonemergent follow-up with urology is recommended. 5. Nonobstructing right renal calculi. 6. There is a 1.4 cm lesion identified in the lower pole of left kidney that does not meet criteria for a simple cyst. Although this could represent a complex cyst, follow-up with a nonemergent renal protocol MRI is recommended to exclude underlying neoplasm. 7. Advanced colonic diverticulosis without CT evidence of acute diverticulitis. 8. Prostatomegaly with evidence of chronic bladder outlet obstruction. 9. There is a small fat-containing right inguinal hernia as well as a fat- containing right suprainguinal hernia. 10. The thyroid gland is markedly enlarged and heterogeneous consistent with multinodular goiter. 11. There are enlarged and pathologically indeterminant mediastinal, hilar, and right axillary lymph nodes. echocardiogram - EF 55-60%. Normal valvular function. Hospital Course (1) Hypotension: Transient hypotension in the ER at presentation rapidly resolved. This may have been a vagal response in setting of severe shoulder pain as he states he had severe left shoulder pain at the same time as the hypotension & stomach upset. No evidence of sepsis, adrenal insufficiency, etc. He did not have recurrent symptoms while here. (2) Hydronephrosis: Right hydronephrosis noted incidentally on CT suggesting right UPJ obstruction. Urology consult was performed and outpatient work-up recommended. He did not have symptoms or signs of UTI while here. (3) Left shoulder pain: bursitis/tendonitis - improved with steroids. recommended NSAID at discharge. (4) Hypertension: Resume normal BP meds at discharge. (5) Obstruction of right ureteropelvic junction (UPJ): see above in "hydronephrosis" (6) Renal cyst, left: could be RCC will need follow-up with urology (7) Lymphadenopathy: reactive due to viral process? cancer? other? at MINIMUM will need repeat imaging and if any persistence work-up would be needed. he denies any recent constitutional symptoms (chronic fevers, weight loss, etc). (8) Multinodular goiter: TSH and Free T4 wnl. he has had a biopsy of the thyroid in the past which was benign. denies any hyperthyroid symptoms. (9) Left hip pain: resolved due to overuse from recent climbing of ladders, etc Total Time Total Time Spent Total Time Spent (In Minutes): 40 Total Time Includes: Examination of the Patient, Discharge Planning, Medication Reconciliation and Communication With Other Providers Discharge Plan Discharge Items Patient Disposition: Home - Self-Care Reason For Visit: PAIN LEFT ARM, AND HIP Discharge Diagnosis: 1. left shoulder pain - improved; was likely tendonitis/bursitis. 2. left hip pain - likely due to arthritis. 3. episode of sweats/dizziness/stomach upset - possible "vagal" response to the severe left shoulder pain. Discharge Goals: Decrease discomfort, Diagnostic testing and Therapeutic intervention Activity: As commented below Activity Comment: take it east 1-2 days then gradually increase as tolerated Exercise/Sports: Gradually increase as tolerated Driving/Machine Use: No limitations Non-emergency contact: Primary Care Provider and Urologist Call non-emergency contact if: you have any medication questions, your symptoms worsen, your pain is not controlled, your pain is worsening and your temperature is above 100.5 Follow-up/Referrals: Taty Cast CRNP [Nurse Practitioner] - 03/09/19 10:45 am (see [facility] within 2 weeks for right-sided urinary tract abnormalities (swollen right ureter) and left-sided kidney cyst A Urology appointment was made with Dr. Cabello on ThursdayMarch 09 at 10:45am. If you have any questions or need to reschedule, please call the office at [phone].) Vamshi Judge MD [Primary Care Provider] - 03/09/19 9:00 am (A follow up appointment has been made with your PCP, Dr. Judge, on ThursdayMarch 09 at 9:00am. If you have any questions or need to reschedule, please call the office at [phone].) Diet: Regular Addtl Provider Instructions: From Fahad Bundy, hospitalist - You were admitted for left shoulder pain, left hip pain, and a brief episode of stomach upset with sweats/dizziness. You had one low blood pressure reading in our ER which resolved quickly. We did not find any evidence of infections, heart attack, or blood clots in your lungs. Your blood and urine cultures were negative. Your x-rays of the left hip showed mild to moderate arthritis. Your shoulder x-rays were normal (no fracture, etc). Incidentally we found swollen glands in the right armpit and chest, a cyst on the left kidney, and a swollen urinary system on the right (swollen ureter, etc). Recommendations - 1. if your left shoulder bothers you again you can take [id number] naprosyn 250mg up to twice a day with food as needed/desired. 2. ice to left shoulder as desired. 3. the naprosyn will help with any left hip arthritis as well. 4. you will need your family doctor to recheck the right armpit swollen gland and likely have a repeat CT scan of your chest in about a month. The cause of the swollen glands is uncertain. Causes include viral infections, certain tick- borne diseases, diseases of the bone marrow and blood, etc. 5. you will need to see urology for the swollen urinary system and left kidney cyst. Follow-up - 1. see Dr Judge within 1 week 2. see [facility] in about 2 weeks Return to [facility] if - * you have fevers over 100.5 degrees * you are having shaking chills or sweats * you have worsening abdominal pain * you have painful urination or difficulty urinating * any other concerns Prescriptions: No Action losartan-hydrochlorothiazide 50-12.5 mg tablet 1 tab PO DAILY Qty: 30 RF: 0 cholecalciferol (vitamin D3) 5,000 unit capsule 5,000 units PO DAILY Qty: 30 RF: 0 Stand-Alone Forms: My [facility] Discharge Orders: Discharge Order (Routine); Ordered 03/03/19 Ordered By: Fahad Bundy Admission Data Admit Date/Time: 03/01/19 14:31 Attending Provider: Fahad Bundyit Provider: Enrrique Rothman Primary Care Provider: Vamshi Judge Other Providers: Jose Cabello Service: Telemetry Other Interventions: Discharge Summary Assessment (RN) Last Done: 03/03/19 09:32 Pending Studies at Discharge: No DC Date/Time DO NOT enter until pt leaves facility: 03/03/19 13:38
== END 2019-03-03 13:38 | disposition home or self-care (01) | DRG 315 ==
LOC: ED 09:44 → 2S 14:31 → SUATTDRO 14:31 → 2S 15:00
DX: Z79.899 Other long term (current) drug therapy; N13.0 Hydronephrosis with ureteropelvic junction obstruction; E04.2 Nontoxic multinodular goiter; I10 Essential (primary) hypertension; N28.1 Cyst of kidney, acquired; M25.512 Pain in left shoulder; I95.9 Hypotension, unspecified